=== PATIENT | male | born 1945 | race African-American/Black ===

== ENCOUNTER 2022-11-04 18:08 | Emergency (ER) | payer MEDICARE, OTHER ==
[~2022-11-04] VITALS: Ht 182.9 cm; Wt 75.0 kg
[~2022-11-04 18:08] MED LIST: BENA20TA77; CARB200C; DEPER5 PO; DONE10TA43; KEPP500 PO; RISP2
[2022-11-04 18:53] LABS: BASOPHILS % 0.1 % (0.0-2.0); EOSINOPHILS % 0.4 % (0.0-5.0); HEMATOCRIT. 39.6 % (42.0-52.0); HEMOGLOBIN. 13.2 g/dL (14.0-18.0); LYMPHOCYTES % 35.7 % (20.0-50.0); MEAN CORPUSCULAR HEMOGLOBIN 29.6 pg (28.0-32.0); MEAN CORPUSCULAR VOLUME 88.4 fL (80.0-94.0); MEAN PLATELET VOLUME 7.5 fl (7.4-10.4); MONOCYTES % 9.8 % (2.0-8.0); PLATELET 134 x1000/uL (130-400); RED BLOOD CELL COUNT 4.48 mill/uL (4.7-6.1); RED CELL DISTRIBUTION WIDTH 15.4 % (11.6-14.6)
[2022-11-04 19:11] LABS: CHLORIDE 95 mEq/L (98-107)
[2022-11-04 19:22] LABS: ETHANOL BLOOD < 10 mg/dL
[2022-11-04] MEDS ORDERED: LEVETIRACETAM 500MG PREMIX 100 ML IV ONE (20:30)
[2022-11-04] MEDS ORDERED: RISPERIDONE 1MG TABLET PO ONE (23:15)
[2022-11-05 08:00] VITALS: BP 115/61
== END 2022-11-05 08:52 ==
LOC: ER 18:08
DX: R56.9 Unspecified convulsions (principal)
CPT/HCPCS: 36415; 70450; 71045; 80053; 80165; 80185; 80320; 85025; 96374; 99285; J1953; G0480

== ENCOUNTER 2024-01-04 13:46 | Inpatient (IN) | payer MEDICARE, MEDICAID ==
[~2024-01-04] VITALS: Ht 175.3 cm; Wt 71.7 kg
[~2024-01-04 13:46] MED LIST changes: -BENA20TA77
[2024-01-04 14:44] VITALS: PULSE 109; RESP 28; O2SAT 98
[2024-01-04] MEDS: ALBUTEROL (0.083%) 2.5MG/3ML NEB HHN STA (14:44)
[2024-01-04] MEDS: IPRATROPIUM BROMIDE (0.02%) 0.5MG/2.5ML NEB HHN STA (14:44)
[2024-01-04 14:47] LABS: BASOPHILS % 0.4 % (0.0-2.0); EOSINOPHILS % 0.1 % (0.0-5.0); HEMATOCRIT. 49.4 % (42.0-52.0); LYMPHOCYTES % 8.9 % (20.0-50.0); MEAN CORPUSCULAR HEMOGLOBIN 30.3 pg (28.0-32.0); MEAN CORPUSCULAR HGB CONC 32.4 g/dL (31.0-37.0); MEAN CORPUSCULAR VOLUME 93.3 fL (80.0-94.0); MEAN PLATELET VOLUME 8.2 fl (7.4-10.4); MONOCYTES % 13.8 % (2.0-8.0); NEUTROPHILS % 76.8 % (40.0-76.0); PLATELET 113 x1000/uL (130-400); WHITE BLOOD COUNT 8.9 x1000/uL (4.5-11.0)
[2024-01-04] MEDS: SODIUM CHLORIDE 0.9% 1,000 ML IV ONE (14:58)
[2024-01-04 15:03] LABS: CHLORIDE 97 mEq/L (98-107); SODIUM 129 mEq/L (136-145)
[2024-01-04 15:04] LABS: CALCIUM 8.9 mg/dL (8.7-10.4); CARBON DIOXIDE 24 mEq/L (21-32)
[2024-01-04 15:09] LABS: CREATININE 0.8 mg/dL (0.6-1.3); GLUCOSE 160 mg/dL (70-105); UREA NITROGEN BLOOD 18 mg/dL (9-23)
[2024-01-04 15:37] LABS: POTASSIUM 7.1 mEq/L (3.5-5.1)
[2024-01-04 15:38] LABS: TROPONIN I HIGH SENSITIVITY 105 ng/L (3.0-53)
[2024-01-04 16:15] LABS: CHLORIDE 98 mEq/L (98-107)
[2024-01-04 16:16] LABS: SODIUM 129 mEq/L (136-145)
[2024-01-04 16:17] LABS: CARBON DIOXIDE 24 mEq/L (21-32)
[2024-01-04 16:22] LABS: CREATININE 0.7 mg/dL (0.6-1.3); GLUCOSE 164 mg/dL (70-105); UREA NITROGEN BLOOD 14 mg/dL (9-23)
[2024-01-04 16:23] LABS: POTASSIUM 4.8 mEq/L (3.5-5.1)
[2024-01-04] MEDS: CALCIUM CHLORIDE 1GM/10ML SYR IV ONE (16:45)
[2024-01-04] MEDS: DEXTROSE 50% WATER 50ML SYRINGE IV ONE (16:55)
[2024-01-04] MEDS: INSULIN REGULAR (HUMULIN R) 1000UNITS/10ML VIAL IV ONE (16:56)
[2024-01-04] MEDS: SODIUM BICARBONATE 8.4% 1 MEQ/ML 50ML SYR IV ONE (16:57)
[2024-01-04 18:18] LABS: BG BASE EXCESS -0.8 mmol/L (-2.0-2.0); BG CARBOXYHEMOGLOBIN 0.3 % (0.5-1.5); BG DEOXYHEMOGLOBIN 0.6 % (0.0-5.0); BG FRACTION INSPIRED OXYGEN 100; BG HCO3 ACT 23.3 mmol/L (22.0-26.0); BG METHEMOGLOBIN 0.3 % (0.0-1.5); BG OXYGEN SATURATION 99.4 % (92.0-98.5); BG OXYHEMOGLOBIN 98.8 % (94.0-97.0); BG PCO2 37.1 mmHg (35.0-45.0); BG PH 7.416 (7.350-7.450); BG SAMPLE SITE RIGHT RADIAL; BG TOTAL HEMOGLOBIN 15.5 g/dL (12.0-18.0); BG VENT MODE MASK - NRB
[2024-01-04 19:19] LABS: LACTIC ACID 3.2 mmol/L (0.4-2.0)
[2024-01-04] MEDS: CEFTRIAXONE 1GM/50ML 50 ML IV ONE (21:00)
[2024-01-04] MEDS: AZITHROMYCIN 500MG/250ML 250 ML IV ONE (21:00)
[2024-01-05] VITALS (13 sets, daily range): BP systolic 94–133; BP diastolic 56–81; PULSE 96–126; RESP 22–28; TEMP 97.1–99.6; O2SAT 93–97
[2024-01-05] MEDS ORDERED: DEXTROSE 50% WATER 50ML SYRINGE IV PRN (03:30)
[2024-01-05] MEDS ORDERED: CLONIDINE 0.1MG TABLET GT PRN (04:00)
[2024-01-05] MEDS: INSULIN LISPRO 100 UNITS/ML SUBCUT SCH (06:00)
[2024-01-05] MEDS: BLOOD SUGAR DIAGNOSTIC STRIP TEST SCH (06:00)
[2024-01-05] MEDS: CARBIDOPA/LEVODOPA 25/100MG TABLET GT SCH (06:44)
[2024-01-05] MEDS: LEVOTHYROXINE SODIUM 125MCG TABLET GT SCH (09:05)
[2024-01-05] MEDS: LEVETIRACETAM 500MG TABLET PO SCH (09:05)
[2024-01-05] MEDS: METHYLPREDNISOLONE SOD SUCC 40MG/ML (ACT-O-VIAL) IV SCH (09:05)
[2024-01-05] MEDS: ASCORBIC ACID 500 MG TABLET GT SCH (09:05)
[2024-01-05] MEDS: DONEPEZIL HCL 10MG TABLET GT SCH (09:06)
[2024-01-05] MEDS: CEFTRIAXONE 1GM/50ML 50 ML IV SCH (09:06)
[2024-01-05] MEDS: AZITHROMYCIN 500MG/250ML 250 ML IV SCH (09:07)
[2024-01-05] MEDS: IPRATROPIUM/ALBUTEROL 0.5-3(2.5)MG/3ML NEB HHN SCH (10:42)
[2024-01-05 11:16] LABS: BASOPHILS % 0.4 % (0.0-2.0); DIFFERENTIAL COMMENT 0; HEMATOCRIT. 44.1 % (42.0-52.0); HEMOGLOBIN. 14.4 g/dL (14.0-18.0); LYMPHOCYTES % 8.1 % (20.0-50.0); MEAN CORPUSCULAR HEMOGLOBIN 29.7 pg (28.0-32.0); MEAN CORPUSCULAR HGB CONC 32.7 g/dL (31.0-37.0); MEAN CORPUSCULAR VOLUME 90.8 fL (80.0-94.0); MEAN PLATELET VOLUME 8.6 fl (7.4-10.4); NEUTROPHILS % 80.5 % (40.0-76.0); PLATELET 139 x1000/uL (130-400); RED BLOOD CELL COUNT 4.86 mill/uL (4.7-6.1); RED CELL DISTRIBUTION WIDTH 15.7 % (11.6-14.6); WHITE BLOOD COUNT 8.1 x1000/uL (4.5-11.0)
[2024-01-05 11:40] LABS: CALCIUM 9.8 mg/dL (8.7-10.4); CARBON DIOXIDE 25 mEq/L (21-32); CHLORIDE 99 mEq/L (98-107); POTASSIUM 4.3 mEq/L (3.5-5.1); SODIUM 132 mEq/L (136-145)
[2024-01-05 11:46] LABS: CREATININE 0.8 mg/dL (0.6-1.3); GLUCOSE 155 mg/dL (70-105); UREA NITROGEN BLOOD 24 mg/dL (9-23)
[2024-01-05] MEDS: DIVALPROEX SODIUM 500MG ER TABLET PO SCH (18:11)
[2024-01-06] VITALS (30 sets, daily range): BP systolic 71–120; BP diastolic 52–95; PULSE 86–145; RESP 10–26; TEMP 97.4–99.5; O2SAT 98
[2024-01-06] MEDS ORDERED: ALBUTEROL (0.083%) 2.5MG/3ML NEB HHN SCH
[2024-01-06] MEDS ORDERED: ENOXAPARIN 40MG/0.4ML SYR SUBCUT SCH (09:00)
[2024-01-06] MEDS: RISPERIDONE 1MG TABLET PO SCH (10:18)
[2024-01-06] MEDS: ENOXAPARIN 80MG/0.8ML SYR SUBCUT SCH ×2 (10:19→21:06)
[2024-01-06 11:58] LABS: INR 1.1; PROTHROMBIN TIME 11.7 sec (9.6-11.0)
[2024-01-06] MEDS ORDERED: ALBUTEROL 6.7GM HFA INHALER ORI PRN (12:30)
[2024-01-06] MEDS ORDERED: LIDOCAINE HCL 1% 10 MG/ML 10ML VIAL ONE (12:35)
[2024-01-06] MEDS: SODIUM CHLORIDE 0.9% 500 ML IV ONE ×2 (14:59→15:28)
[2024-01-06] MEDS: DIGOXIN 500MCG/2ML AMP IV NR (15:27)
[2024-01-06] MEDS: ACETAMINOPHEN 325MG TABLET GT PRN (16:01)
[2024-01-06] MEDS: ALBUTEROL (0.083%) 2.5MG/3ML NEB INH SCH (16:40)
[2024-01-06] MEDS: SODIUM CHLORIDE 0.9% 250 ML IV ONE (18:28)
[2024-01-06 18:43] LABS: BG BASE EXCESS 2.7 mmol/L (-2.0-2.0); BG CARBOXYHEMOGLOBIN 0.3 % (0.5-1.5); BG DEOXYHEMOGLOBIN 0.5 % (0.0-5.0); BG FRACTION INSPIRED OXYGEN 36; BG HCO3 ACT 26.1 mmol/L (22.0-26.0); BG METHEMOGLOBIN 0.3 % (0.0-1.5); BG OXYGEN SATURATION 99.5 % (92.0-98.5); BG OXYHEMOGLOBIN 98.9 % (94.0-97.0); BG PCO2 36.2 mmHg (35.0-45.0); BG PH 7.476 (7.350-7.450); BG PO2 207.2 mmHg (75.0-100.0); BG SAMPLE SITE RIGHT RADIAL; BG TOTAL HEMOGLOBIN 11.8 g/dL (12.0-18.0); BG VENT MODE NASAL CANNULA
[2024-01-06] MEDS: PHENYLEPHRINE 50MG/250ML PMX 250 ML IV PRN (19:04)
[2024-01-06] MEDS ORDERED: IOHEXOL-350 100 ML BOTTLE ONE (22:52)
[2024-01-07] VITALS (73 sets, daily range): BP systolic 73–114; BP diastolic 45–80; PULSE 69–148; RESP 5–25; TEMP 97.7–98.6; O2SAT 100
[2024-01-07 05:16] LABS: BASOPHILS % 0.2 % (0.0-2.0); HEMATOCRIT. 34.2 % (42.0-52.0); HEMOGLOBIN. 11.3 g/dL (14.0-18.0); MEAN CORPUSCULAR HEMOGLOBIN 30.2 pg (28.0-32.0); MEAN CORPUSCULAR VOLUME 91.4 fL (80.0-94.0); MEAN PLATELET VOLUME 8.8 fl (7.4-10.4); MONOCYTES % 11.3 % (2.0-8.0); NEUTROPHILS % 76.5 % (40.0-76.0); PLATELET 131 x1000/uL (130-400); RED BLOOD CELL COUNT 3.74 mill/uL (4.7-6.1); RED CELL DISTRIBUTION WIDTH 14.8 % (11.6-14.6); WHITE BLOOD COUNT 5.1 x1000/uL (4.5-11.0)
[2024-01-07 05:34] LABS: CALCIUM 9.2 mg/dL (8.7-10.4); CHLORIDE 99 mEq/L (98-107); POTASSIUM 4.9 mEq/L (3.5-5.1); SODIUM 134 mEq/L (136-145)
[2024-01-07 05:35] LABS: CARBON DIOXIDE 28 mEq/L (21-32)
[2024-01-07 05:40] LABS: CREATININE 0.6 mg/dL (0.6-1.3); GLUCOSE 182 mg/dL (70-105); UREA NITROGEN BLOOD 24 mg/dL (9-23)
[2024-01-07] MEDS: DEXAMETHASONE 6MG TABLET PO SCH (08:22)
[2024-01-07] MEDS: AZITHROMYCIN 500 MG TABLET PO SCH (08:23)
[2024-01-07] MEDS ORDERED: DEXAMETHASONE 2MG TABLET PO ONE (09:00)
[2024-01-07] MEDS: SODIUM CHLORIDE 0.9% 1,000 ML IV ONE (12:24)
[2024-01-07] MEDS: DILTIAZEM HCL 5MG/ML 5ML VIAL IV PRN (14:45)
[2024-01-07 16:02] LABS: TROPONIN I HIGH SENSITIVITY 51 ng/L (3.0-53)
[2024-01-07 16:03] LABS: ALBUMIN 3.2 g/dL (3.2-4.8)
[2024-01-07 16:07] LABS: PREALBUMIN < 5.0 mg/dl (10.0-40.0)
[2024-01-07] MEDS ORDERED: ACETAMINOPHEN 650MG/20.3ML UDC GT PRN (17:15)
[2024-01-07] MEDS: SODIUM CHLORIDE 0.9% 500 ML IV NR (18:11)
[2024-01-07] MEDS: LEVETIRACETAM 500MG/5ML CUP GT SCH (21:14)
[2024-01-08] VITALS (26 sets, daily range): BP systolic 101–132; BP diastolic 51–74; PULSE 69–95; RESP 12–27; TEMP 97.6–98.2; O2SAT 95–99
[2024-01-08 05:21] LABS: CLARITY URINE CLEAR (CLEAR); COLOR URINE YELLOW (YELLOW); GLUCOSE URINE NEGATIVE (NEGATIVE); KETONES URINE NEGATIVE (NEGATIVE); LEUKOCYTE ESTERASE URINE NEGATIVE (NEGATIVE); NITRITE URINE NEGATIVE (NEGATIVE); OCCULT BLOOD URINE NEGATIVE (NEGATIVE); PH URINE 7.5 (4.5-8.0); PROTEIN URINE NEGATIVE (NEGATIVE); SPECIFIC GRAVITY URINE 1.023 (1.005-1.030)
[2024-01-08] MEDS: PANTOPRAZOLE SODIUM 40 MG/VIAL IV SCH (09:18)
[2024-01-08] MEDS ORDERED: LEVO125T8 PO (17:02)
[2024-01-08] MEDS ORDERED: METF-414 PO (17:02)
[2024-01-08] MEDS ORDERED: VALP250S4 PO (17:02)
[2024-01-08] MEDS ORDERED: CARB-324 PO (17:04)
[2024-01-08] MEDS ORDERED: DONE10TA43 PO (17:04)
[2024-01-08] MEDS ORDERED: TAMS-11 PO (17:04)
[2024-01-08] MEDS ORDERED: KEPPSOL PO (17:07)
[2024-01-08] MEDS ORDERED: LATA2.5D14 EACHEYE (17:07)
[2024-01-08] MEDS: DIVALPROEX SODIUM 125MG SPRINKLE CAPSULE GT SCH (18:34)
[2024-01-09] VITALS (18 sets, daily range): BP systolic 86–111; BP diastolic 54–72; PULSE 75–106; RESP 0–25; TEMP 97–98.2; O2SAT 98–100
[2024-01-10] VITALS (18 sets, daily range): BP systolic 96–140; BP diastolic 56–82; PULSE 74–92; RESP 15–20; TEMP 97.3–98.2; O2SAT 96–97
[2024-01-10] MEDS: ENOXAPARIN 80MG/0.8ML SYR SUBCUT SCH (21:42)
[2024-01-11] VITALS (7 sets, daily range): BP systolic 103–120; BP diastolic 55–80; PULSE 65–86; RESP 18–19; TEMP 97.5–100.6; O2SAT 99
== END 2024-01-11 15:21 | DRG 871 ==
LOC: ER 14:34 → 5EST 16:05 → EDBEDREQTM 16:08 → EDBEDREQ 16:08 → MICUSO 01-06 17:29 → 5EST 01-08 06:30 → 7WST 01-10 10:07
PROVIDERS: ADMIT Internal Medicine; ATTEND Internal Medicine
PROC: 02HV33Z Insertion of Infusion Device into Superior Vena Cava, Percutaneous Approach (ICD-10-PCS; principal; 2024-01-06)
PROC: B548ZZA Ultrasonography of Superior Vena Cava, Guidance (ICD-10-PCS; 2024-01-06)
DX: A41.89 Other specified sepsis (principal); G93.41 Metabolic encephalopathy; U07.1 COVID-19; J12.82 Pneumonia due to coronavirus disease 2019; J96.21 Acute and chronic respiratory failure with hypoxia; L89.153 Pressure ulcer of sacral region, stage 3; E87.1 Hypo-osmolality and hyponatremia; R57.9 Shock, unspecified; I47.10 Supraventricular tachycardia, unspecified; R65.20 Severe sepsis without septic shock; E11.9 Type 2 diabetes mellitus without complications; I10 Essential (primary) hypertension; E03.9 Hypothyroidism, unspecified; D64.9 Anemia, unspecified; F20.9 Schizophrenia, unspecified; E11.65 Type 2 diabetes mellitus with hyperglycemia; E78.00 Pure hypercholesterolemia, unspecified; K21.9 Gastro-esophageal reflux disease without esophagitis; E86.1 Hypovolemia; G40.909 Epilepsy, unspecified, not intractable, without status epilepticus; I48.91 Unspecified atrial fibrillation; Z74.01 Bed confinement status; Z99.81 Dependence on supplemental oxygen; Z78.9 Other specified health status
CPT/HCPCS: 36415; 36573; 36600; 71045; 71275; 80048; 81003; 82040; 82375; 82805; 82962; 83036; 83605; 83880; 84134; 84145; 84484; 85025; 85044; 85379; 87426; 87804; 93005; 93970; 94640; 99291; A6261; C1725; J0456; J0696; J1160; J1650; J1815; J2470; J2920; J3490; J7030; Q9967